=== PATIENT | female | born 1960 | race Caucasian/White ===

== ENCOUNTER 2023-04-25 09:55 | Outpatient (CLI) | payer OTHER ==
[2023-04-25 12:10] LABS: EOSINOPHILS # (AUTO) 0.1 10^3/uL (0.0-0.7); EOSINOPHILS % (AUTO) 1.3 %; HCT - HEMATOCRIT 40.1 % (37.0-47.0); HGB - HEMOGLOBIN 13.2 g/dL (12.0-16.0); LYMPHOCYTES # (AUTO) 1.4 10^3/uL (1.5-3.5); LYMPHOCYTES % (AUTO) 35.7 %; MEAN CORPUSCULAR HEMOGLOBIN 30.8 pg (27.0-31.0); MEAN CORPUSCULAR HGB CONC 32.9 g/dL (32.0-36.0); MEAN CORPUSCULAR VOLUME 93.7 fL (81.0-99.0); MEAN PLATELET VOLUME 10.3 fL (7.9-10.8); MONOCYTES # (AUTO) 0.3 10^3/uL (0.0-1.0); MONOCYTES % (AUTO) 8.9 %; NEUTROPHILS % (AUTO) 52.8 %; PLT - PLATELET COUNT 234 10^3/uL (130-450); RED BLOOD COUNT 4.28 10^6/uL (4.20-5.40); RED CELL DISTRIBUTION WIDTH 13.5 % (12.0-15.0); WHITE BLOOD COUNT 3.8 x10^3/uL (4.8-10.8)
[2023-04-25 12:23] LABS: ALBUMIN 3.8 g/dL (3.2-5.5); ALKALINE PHOSPHATASE 121 IU/L (42-121); ALT ALANINE AMINOTRANSFERASE 20 IU/L (10-60); AST ASPARTATE AMINOTRANSFERASE 27 IU/L (10-42); BILIRUBIN,TOTAL 0.8 mg/dL (0.2-1.0); BUN - BLOOD UREA NITROGEN 13 mg/dL (6-20); CALCIUM 9.2 mg/dL (8.5-10.3); CARBON DIOXIDE - CO2 27 mmol/L (21-32); CHLORIDE 110 mmol/L (101-111); CHOLESTEROL 148 mg/dL; CREATININE 0.6 mg/dL (0.4-1.0); GFR - MDRD 101 (>89); GLUCOSE 91 mg/dL (70-100); HDL CHOLESTEROL 50 mg/dL; LDL CHOLESTEROL,CALCULATED 88 mg/dL; LDL/HDL RATIO 1.8 (<4.4); POTASSIUM 4.5 mmol/L (3.5-5.0); SODIUM 140 mmol/L (135-145); TOTAL PROTEIN 7.5 g/dL (6.7-8.2); TRIGLYCERIDES 48 mg/dL; VLDL CHOLESTEROL 10 mg/dL
[2023-04-25 12:33] LABS: THYROID STIMULATING HORMONE 1.01 uIU/mL (0.34-5.60)
== END 2023-04-25 09:56 | disposition home or self-care (01) ==
LOC: LAB.N 09:55
PROVIDERS: ATTEND Family Medicine
DX: I49.3 Ventricular premature depolarization (principal); I49.9 Cardiac arrhythmia, unspecified
CPT/HCPCS: 36415; 80053; 80061; 83721; 84443; 85025

== ENCOUNTER 2023-08-01 12:48 | Outpatient (CLI) | payer OTHER ==
--- NOTE | 2023-08-08 13:40 | Mammography Report ---
BILATERAL DIGITAL SCREENING MAMMOGRAM 3D/2D: 08/01/2023 CLINICAL: Routine screening. No prior exams were available for comparison. Both breasts are heterogeneously dense, which may obscure small masses (category c / 51-75% glandular tissue). There is a biopsy clip in the left breast. No significant masses, calcifications, or other findings are seen in either breast. IMPRESSION: NEGATIVE There is no mammographic evidence of malignancy. A 1 year screening mammogram is recommended. Based on the Tyrer Cuzick model (a risk assessment model) the patients lifetime risk is 17.8% and he r 10 year risk is 8.0%. According to the ACR, ACS, and NCCN guidelines, an annual breast MRI exam delifno ng with mammogram is recommended if the patients lifetime risk is 20% or greater. This exam was interpreted at Station ID: [id number]. NOTE: For mammograms, a report in lay terms will be sent to the patient. Approximately 15% of breast malignancies will not be visualized mammographically. In the management of a palpable breast mass, a negative mammogram must not discourage biopsy of a clinically suspicious lesion. Electronically Signed By: Padilla dimas/wan:08/08/2023 13:25:29 letter sent: No_Letter ACR BI-RADS Category 1: Negative 3341F PARENCHYMAL PATTERN: (D) - The breast(s) demonstrate(s) heterogeneously dense fibroglandular denise lawrence. BI-RADS CATEGORY: (1) - 1 Mammogram [id number] 1 year screening LATERALITY: (B)
== END 2023-08-01 12:49 | disposition home or self-care (01) ==
LOC: DI.N 12:48
DX: Z12.31 Encounter for screening mammogram for malignant neoplasm of breast (principal); R92.333 Mammographic heterogeneous density, bilateral breasts

== ENCOUNTER 2023-11-13 12:45 | Outpatient (CLI) | payer OTHER ==
--- NOTE | 2023-11-13 16:07 | CT Report ---
PROCEDURE: Chest WO INDICATIONS: LUNG NODULE TECHNIQUE: A CT scan of the chest was performed. Intravenous contrast media was not administered. Images were re corded and evaluated at appropriate window settings. Reformats: axial MIP of the chest, coronal and s agittal. For radiation dose reduction, the following was used: automated exposure control, adjustment of mA and/or kV according to patient size. COMPARISON: None available at the time of dictation FINDINGS: Image quality: Excellent. Lungs and pleura: No consolidation. No pleural effusions. No pneumothorax. Solid 4 mm nodule seen in the right lung base. Mediastinum: Heart size is normal. No pericardial effusion. No large vessel abn ormality. No mediastinal adenopathy by size criteria. Chest wall and lower neck: Thyroid is unremarkable. No axillary or supraclavicular adenopathy by size . Bones: No aggressive osseous abnormality. Upper Abdomen: Cholecystectomy changes. Suggestion of gastric bypass. Small hiatal hernia. Surgical s utures of loop of small bowel noted IMPRESSION: 1. A 4 mm right lower lobe pulmonary nodule. If patient is low risk for lung cancer, no follow-up nee ded. If patient at high risk for lung cancer, recommend follow-up low-dose CT chest in 12 months. 2. Additional findings of the upper abdomen including cholecystectomy changes, suggestion of gastric bypass, surgical changes of the bowel. Reviewed by: Varun Ashley MD on 11/13/2023 4:06 PM PST Approved by: Varun Ashley MD on 11/13/2023 4:06 PM PST Station ID: [id number]
== END 2023-11-13 12:46 | disposition home or self-care (01) ==
LOC: DI 12:45
PROVIDERS: ATTEND Physician Assistant
DX: R91.1 Solitary pulmonary nodule (principal); Z90.49 Acquired absence of other specified parts of digestive tract

== ENCOUNTER 2024-01-13 10:27 | Outpatient (CLI) | payer OTHER ==
[2024-01-13 10:35] LABS: BASOPHILS # (AUTO) 0.1 10^3/uL (0.0-0.1); BASOPHILS % (AUTO) 1.3 %; EOSINOPHILS # (AUTO) 0.1 10^3/uL (0.0-0.7); HCT - HEMATOCRIT 40.2 % (37.0-47.0); HGB - HEMOGLOBIN 13.1 g/dL (12.0-16.0); LYMPHOCYTES % (AUTO) 41.3 %; MEAN CORPUSCULAR HEMOGLOBIN 31.4 pg (27.0-31.0); MEAN CORPUSCULAR HGB CONC 32.6 g/dL (32.0-36.0); MEAN CORPUSCULAR VOLUME 96.4 fL (81.0-99.0); MEAN PLATELET VOLUME 9.2 fL (7.9-10.8); MONOCYTES # (AUTO) 0.4 10^3/uL (0.0-1.0); MONOCYTES % (AUTO) 8.8 %; NEUTROPHILS # (AUTO) 2.3 10^3/uL (1.5-6.6); NEUTROPHILS % (AUTO) 47.4 %; PLT - PLATELET COUNT 213 10^3/uL (130-450); RED BLOOD COUNT 4.17 10^6/uL (4.20-5.40); RED CELL DISTRIBUTION WIDTH 12.9 % (12.0-15.0); WHITE BLOOD COUNT 4.8 x10^3/uL (4.8-10.8)
[2024-01-13 10:54] LABS: ALBUMIN 3.9 g/dL (3.2-5.5); ALBUMIN/GLOBULIN RATIO 1.3 (1.0-2.2); ALKALINE PHOSPHATASE 99 IU/L (42-121); ALT ALANINE AMINOTRANSFERASE 19 IU/L (10-60); AST ASPARTATE AMINOTRANSFERASE 25 IU/L (10-42); BILIRUBIN,TOTAL 0.6 mg/dL (0.2-1.0); BUN - BLOOD UREA NITROGEN 14 mg/dL (6-20); CALCIUM 9.4 mg/dL (8.5-10.3); CARBON DIOXIDE - CO2 31 mmol/L (21-32); CHLORIDE 107 mmol/L (101-111); CHOL/HDL RATIO 2.8 (<4.4); CHOLESTEROL 149 mg/dL; CREATININE 0.6 mg/dL (0.6-1.3); GFR - MDRD 101 (>89); GLUCOSE 92 mg/dL (74-104); HDL CHOLESTEROL 53 mg/dL; LDL CHOLESTEROL,CALCULATED 80 mg/dL; LDL/HDL RATIO 1.5 (<4.4); POTASSIUM 4.5 mmol/L (3.5-4.5); SODIUM 140 mmol/L (135-145); TOTAL PROTEIN 6.8 g/dL (6.4-8.9); TRIGLYCERIDES 82 mg/dL (48-352); VLDL CHOLESTEROL 16 mg/dL
== END 2024-01-13 10:28 | disposition home or self-care (01) ==
LOC: LAB 10:27
PROVIDERS: ATTEND Physician Assistant
DX: Z00.00 Encounter for general adult medical examination without abnormal findings (principal); E78.5 Hyperlipidemia, unspecified
CPT/HCPCS: 36415; 80053; 80061; 83721; 85025

== ENCOUNTER 2024-01-13 10:33 | Outpatient (CLI) | payer OTHER ==
--- NOTE | 2024-01-13 11:40 | DEXA Report ---
PROCEDURE: Dexa Spine and/or Hip INDICATIONS: POST MENOPAUSAL TECHNIQUE: Dual energy x-ray absorptiometry (DXA) was performed on a [employer] System. Regions measur ed are the AP Spine, femoral neck, and if needed forearm. COMPARISON: None FINDINGS: Lumbar Spine: Bone Mineral Density: 1.152 g/cm/cm,T score: -0.2. Left Femoral Neck: Bone Mineral Density: 0.791 g/cm/cm, T score: -1.8. Left Hip: Bone Mineral Density: 0.865 g/cm/cm,T score: -1.1. (T score greater or equal to -1.0: NORMAL) (T score from -1.1 to -2.4: OSTEOPENIA) (T score less than or equal to -2.5 to: OSTEOPOROSIS) Impression: By WHO criteria, this patient has low bone density (osteopenia). Patients with diagnosis of osteoporosis or osteopenia should have regular bone mineral density assess ment. For those eligible for Medicare, routine testing is allowed once every 2 years. Testing frequ ency can be increased for patients who have rapidly progressing disease or for those who are receivin g medical therapy to restore bone mass. Reviewed by: Shayna Chisholm MD on 01/13/2024 11:39 AM PDT Approved by: Shayna Chisholm MD on 01/13/2024 11:39 AM PDT Station ID: [id number]
== END 2024-01-13 10:34 | disposition home or self-care (01) ==
LOC: DI 10:33
PROVIDERS: ATTEND Physician Assistant
DX: Z78.0 Asymptomatic menopausal state (principal); Z82.62 Family history of osteoporosis; M85.89 Other specified disorders of bone density and structure, multiple sites; Z00.00 Encounter for general adult medical examination without abnormal findings; E78.5 Hyperlipidemia, unspecified
CPT/HCPCS: 36415; 80053; 80061; 83721; 85025

== ENCOUNTER 2024-03-31 14:18 | Outpatient (CLI) | payer OTHER ==
[2024-03-31 18:03] LABS: BASOPHILS # (AUTO) 0.1 10^3/uL (0.0-0.1); BASOPHILS % (AUTO) 1.1 %; EOSINOPHILS % (AUTO) 0.4 %; HCT - HEMATOCRIT 39.2 % (37.0-47.0); HGB - HEMOGLOBIN 12.7 g/dL (12.0-16.0); LYMPHOCYTES # (AUTO) 1.6 10^3/uL (1.5-3.5); LYMPHOCYTES % (AUTO) 31.4 %; MEAN CORPUSCULAR HEMOGLOBIN 31.3 pg (27.0-31.0); MEAN CORPUSCULAR HGB CONC 32.4 g/dL (32.0-36.0); MEAN CORPUSCULAR VOLUME 96.6 fL (81.0-99.0); MEAN PLATELET VOLUME 10.4 fL (7.9-10.8); MONOCYTES # (AUTO) 0.4 10^3/uL (0.0-1.0); MONOCYTES % (AUTO) 7.7 %; NEUTROPHILS # (AUTO) 3.1 10^3/uL (1.5-6.6); NEUTROPHILS % (AUTO) 59.2 %; PLT - PLATELET COUNT 241 10^3/uL (130-450); RED BLOOD COUNT 4.06 10^6/uL (4.20-5.40); RED CELL DISTRIBUTION WIDTH 12.8 % (12.0-15.0); WHITE BLOOD COUNT 5.2 x10^3/uL (4.8-10.8)
[2024-03-31 18:22] LABS: ALBUMIN/GLOBULIN RATIO 2.1 (1.0-2.2); BILIRUBIN,TOTAL 0.5 mg/dL (0.2-1.0); CALCIUM 9.3 mg/dL (8.5-10.3); CREATININE 0.6 mg/dL (0.6-1.3); POTASSIUM 4.4 mmol/L (3.5-4.5); TOTAL PROTEIN 5.9 g/dL (6.4-8.9)
[2024-03-31 18:32] LABS: PARTIAL THROMBOPLASTIN TIME 29.7 secs (24.9-33.3)
[2024-03-31 18:37] LABS: INR 1.1 (0.8-1.2); PT - PROTHROMBIN TIME 12.4 secs (9.9-12.6)
[2024-03-31 18:38] LABS: FERRITIN 22.9 ng/mL (11.0-306.8)
== END 2024-03-31 14:19 | disposition home or self-care (01) ==
LOC: LAB.N 14:18
PROVIDERS: ATTEND Physician Assistant
DX: G31.84 Mild cognitive impairment of uncertain or unknown etiology (principal); Z98.0 Intestinal bypass and anastomosis status
CPT/HCPCS: 36415; 80053; 82306; 82390; 82607; 82728; 82746; 83970; 84630; 85025; 85610; 85730

== ENCOUNTER 2024-04-14 15:06 | Outpatient (CLI) | payer OTHER ==
--- NOTE | 2024-04-15 08:12 | MRI Report ---
PROCEDURE: Brain WO INDICATIONS: MILD COGNITIVE IMPAIRMENT TECHNIQUE: Noncontrast axial T1 spin echo, axial T2 fast spin echo, sagittal and axial FLAIR, coronal T2 fast sp in echo, axial gradient echo, axial diffusion and ADC through the brain. COMPARISON: None. FINDINGS: Image quality: Excellent. CSF Spaces: Basal cisterns are patent. No extra-axial fluid collections. Ventricles are normal in size and shape. Brain: No intracranial masses or hemorrhage. Griffiths/white matter interface is normal. There is mild a ge-related global volume loss and mild chronic microvascular ischemic changes. Brainstem appears norm al. Diffusion-weighted images demonstrate no acute ischemic insult. No chronic ischemic insults. N ormal intravascular flow voids are present. Skull and face: Calvarium has normal marrow signal. Orbits appear normal. Sinuses: Hypoplastic right maxillary sinus. Sinuses and mastoids are clear. IMPRESSION: 1.Mild age-related global volume loss and chronic microvascular ischemic changes. 2.No acute intracranial abnormalities. Reviewed by: David Bojorquez MD on 04/15/2024 8:11 AM PDT Approved by: David Bojorquez MD on 04/15/2024 8:11 AM PDT Station ID: [id number]
== END 2024-04-14 15:07 | disposition home or self-care (01) ==
LOC: DI 15:06
PROVIDERS: ATTEND Physician Assistant
DX: G44.52 New daily persistent headache (NDPH) (principal); G31.89 Other specified degenerative diseases of nervous system; I67.82 Cerebral ischemia

== ENCOUNTER 2024-06-05 14:00 | Outpatient (CLI) | payer OTHER ==
--- NOTE | 2024-06-08 15:28 | XRAY Report ---
PROCEDURE: Wrist 3+V LT INDICATIONS: PAIN IN LEFT WRIST TECHNIQUE: 3 views of the wrist were acquired. COMPARISON: None. FINDINGS: Bones: No fractures or dislocations. No suspicious bony lesions. Mild first CMC degenerative narr owing with minimal subchondral sclerosis Soft tissues: No suspicious soft tissue calcifications or masses. IMPRESSION: Early arthritic changes are present at the first CMC joint. Reviewed by: Meaghan Mckinley MD on 06/08/2024 3:27 PM PDT Approved by: Meaghan Mckinley MD on 06/08/2024 3:27 PM PDT Station ID: [id number]
--- NOTE | 2024-06-08 19:06 | XRAY Report ---
PROCEDURE: Forearm LT INDICATIONS: PAIN IN LEFT WRIST TECHNIQUE: 2 views of the forearm were acquired. COMPARISON: None FINDINGS: Bones: No fractures or dislocations. No suspicious bony lesions. First carpal metacarpal arthritic changes Soft tissues: No suspicious soft tissue calcifications or masses. IMPRESSION: First carpometacarpal degenerative arthritis. No forearm fracture or foreign body Reviewed by: Fabrizio Ochoa MD on 06/08/2024 6:05 PM AKJOHAN Approved by: Fabrizio Ochoa MD on 06/08/2024 6:05 PM AKDT Station ID: [id number]
== END 2024-06-05 14:01 | disposition home or self-care (01) ==
LOC: DI 14:00
PROVIDERS: ATTEND Physician Assistant
DX: M25.532 Pain in left wrist (principal); M18.9 Osteoarthritis of first carpometacarpal joint, unspecified